=== PATIENT | female | born 1970 | race Caucasian/White ===

== ENCOUNTER → 2019-04-25 10:36 | Outpatient (BNVA) | payer SELFPAY | PROVIDERS: Family Provider Family Medicine; PCP Family Medicine; Referring Provider Specialist; Visit Provider Internal Medicine Rheumatology | DX: M19.90 Unspecified osteoarthritis, unspecified site (principal); M32.9 Systemic lupus erythematosus, unspecified; G40.909 Epilepsy, unspecified, not intractable, without status epilepticus; M79.10 Myalgia, unspecified site | CPT/HCPCS: 99204 ==

== ENCOUNTER → 2019-05-16 11:43 | Outpatient (BNVA) | payer SELFPAY | PROVIDERS: Family Provider Family Medicine; PCP Family Medicine | DX: M1A.9XX0 Chronic gout, unspecified, without tophus (tophi) (principal); Z79.899 Other long term (current) drug therapy; Z11.59 Encounter for screening for other viral diseases; R76.9 Abnormal immunological finding in serum, unspecified; R76.8 Other specified abnormal immunological findings in serum | CPT/HCPCS: 36415; 80076; 82085; 82150; 82306; 82565; 82575; 84156; 85651; 86140; 86160; 86431; 86480; 86704; 86803; 87340 ==

== ENCOUNTER → 2019-05-16 14:12 | Outpatient (BNVA) | payer SELFPAY | PROVIDERS: Family Provider Family Medicine; PCP Family Medicine | DX: M1A.9XX0 Chronic gout, unspecified, without tophus (tophi) (principal); R76.9 Abnormal immunological finding in serum, unspecified; R76.8 Other specified abnormal immunological findings in serum; Z79.899 Other long term (current) drug therapy; M19.90 Unspecified osteoarthritis, unspecified site | CPT/HCPCS: 81001; 85025 ==

== ENCOUNTER → 2019-07-23 13:17 | Outpatient (BNVA) | payer SELFPAY | PROVIDERS: Family Provider Family Medicine; PCP Family Medicine; Visit Provider Specialist | DX: M19.90 Unspecified osteoarthritis, unspecified site (principal); Z79.899 Other long term (current) drug therapy; G40.909 Epilepsy, unspecified, not intractable, without status epilepticus; M79.7 Fibromyalgia; M32.9 Systemic lupus erythematosus, unspecified; E66.9 Obesity, unspecified; Z68.33 Body mass index [BMI] 33.0-33.9, adult | CPT/HCPCS: 36415; 80076; 82565; 85025; 85651; 86140; 99213 ==

== ENCOUNTER → 2019-12-19 14:05 | Outpatient (BNVA) | payer MEDICARE, SELFPAY | PROVIDERS: Family Provider Family Medicine; PCP Family Medicine; Visit Provider Internal Medicine Rheumatology | DX: M35.9 Systemic involvement of connective tissue, unspecified (principal); M19.90 Unspecified osteoarthritis, unspecified site; R76.8 Other specified abnormal immunological findings in serum; Z79.899 Other long term (current) drug therapy; M79.7 Fibromyalgia; L03.031 Cellulitis of right toe | CPT/HCPCS: 99214 ==

== ENCOUNTER → 2020-04-27 11:30 | Outpatient (BNVA) | payer MEDICARE, SELFPAY | PROVIDERS: Family Provider Family Medicine; PCP Family Medicine; Visit Provider Specialist | DX: R76.8 Other specified abnormal immunological findings in serum (principal); M35.9 Systemic involvement of connective tissue, unspecified; M79.7 Fibromyalgia; Z87.891 Personal history of nicotine dependence; R20.2 Paresthesia of skin; Z79.899 Other long term (current) drug therapy; G43.711 Chronic migraine without aura, intractable, with status migrainosus; R56.9 Unspecified convulsions | CPT/HCPCS: 99214 ==

== ENCOUNTER → 2020-09-02 13:43 | Outpatient (BNVA) | payer MEDICARE, SELFPAY | PROVIDERS: Family Provider Family Medicine; PCP Nurse Practitioner; Visit Provider Internal Medicine Rheumatology | DX: M32.9 Systemic lupus erythematosus, unspecified (principal); M19.90 Unspecified osteoarthritis, unspecified site; M79.7 Fibromyalgia; Z79.899 Other long term (current) drug therapy; Z87.891 Personal history of nicotine dependence; G43.909 Migraine, unspecified, not intractable, without status migrainosus; G40.909 Epilepsy, unspecified, not intractable, without status epilepticus | CPT/HCPCS: 99213; 99214 ==

== ENCOUNTER → 2021-02-01 13:57 | Outpatient (BNVA) | payer MEDICARE, SELFPAY | PROVIDERS: Family Provider Family Medicine; PCP Nurse Practitioner; Visit Provider Specialist | DX: G43.711 Chronic migraine without aura, intractable, with status migrainosus (principal); G40.909 Epilepsy, unspecified, not intractable, without status epilepticus; G25.81 Restless legs syndrome; E66.9 Obesity, unspecified; Z68.37 Body mass index [BMI] 37.0-37.9, adult | CPT/HCPCS: 99213; 99214 ==

== ENCOUNTER → 2021-08-02 14:58 | Outpatient (BNVA) | payer MEDICARE, SELFPAY | PROVIDERS: Family Provider Family Medicine; PCP Nurse Practitioner; Visit Provider Specialist | DX: G43.711 Chronic migraine without aura, intractable, with status migrainosus (principal); R35.0 Frequency of micturition | CPT/HCPCS: 99213; 99214 ==

== ENCOUNTER → 2021-08-25 14:57 | Outpatient (BNVA) | payer MEDICARE, SELFPAY | PROVIDERS: Family Provider Family Medicine; PCP Nurse Practitioner; Visit Provider Internal Medicine Rheumatology | DX: M32.9 Systemic lupus erythematosus, unspecified (principal); Z79.899 Other long term (current) drug therapy; M79.7 Fibromyalgia; L03.031 Cellulitis of right toe; K59.00 Constipation, unspecified; R19.7 Diarrhea, unspecified; Z71.89 Other specified counseling | CPT/HCPCS: 99214 ==

== ENCOUNTER → 2021-12-01 14:39 | Outpatient (BNVA) | payer MEDICARE, SELFPAY | PROVIDERS: Family Provider Family Medicine; PCP Nurse Practitioner; Visit Provider Internal Medicine Rheumatology | DX: M32.9 Systemic lupus erythematosus, unspecified (principal); Z79.899 Other long term (current) drug therapy; Z71.89 Other specified counseling; L56.8 Other specified acute skin changes due to ultraviolet radiation; K58.2 Mixed irritable bowel syndrome; L03.031 Cellulitis of right toe; K21.9 Gastro-esophageal reflux disease without esophagitis | CPT/HCPCS: 99214 ==

== ENCOUNTER → 2022-07-05 12:40 | Outpatient (BNVA) | payer MEDICARE, SELFPAY | PROVIDERS: Family Provider Family Medicine; PCP Nurse Practitioner; Visit Provider Specialist | DX: G43.109 Migraine with aura, not intractable, without status migrainosus (principal); M32.9 Systemic lupus erythematosus, unspecified; R56.9 Unspecified convulsions; Z79.899 Other long term (current) drug therapy; R41.89 Other symptoms and signs involving cognitive functions and awareness; Z71.89 Other specified counseling; R20.2 Paresthesia of skin | CPT/HCPCS: 99214 ==

== ENCOUNTER → 2023-01-03 13:36 | Outpatient (BNVA) | payer MEDICARE, SELFPAY | PROVIDERS: Family Provider Family Medicine; PCP Nurse Practitioner; Visit Provider Internal Medicine Rheumatology | DX: M32.9 Systemic lupus erythematosus, unspecified (principal); Z79.899 Other long term (current) drug therapy; Z71.89 Other specified counseling; M35.9 Systemic involvement of connective tissue, unspecified; G40.909 Epilepsy, unspecified, not intractable, without status epilepticus | CPT/HCPCS: 36415; 80076; 82565; 85025; 86140; 99214 ==

== ENCOUNTER → 2023-07-31 11:31 | Outpatient (BNVA) | payer MEDICARE, SELFPAY | PROVIDERS: Family Provider Family Medicine; PCP Nurse Practitioner; Visit Provider Internal Medicine Rheumatology | DX: M32.9 Systemic lupus erythematosus, unspecified (principal); Z79.899 Other long term (current) drug therapy; M45.6 Ankylosing spondylitis lumbar region; M54.9 Dorsalgia, unspecified; Z71.89 Other specified counseling | CPT/HCPCS: 72100; 72170; 99214 ==

== ENCOUNTER → 2023-08-04 13:01 | Outpatient (BNVA) | payer MEDICARE, SELFPAY | PROVIDERS: Family Provider Family Medicine; PCP Nurse Practitioner; Visit Provider Specialist | DX: M32.9 Systemic lupus erythematosus, unspecified (principal); G40.909 Epilepsy, unspecified, not intractable, without status epilepticus; G43.711 Chronic migraine without aura, intractable, with status migrainosus; G25.81 Restless legs syndrome | CPT/HCPCS: 99214 ==

== ENCOUNTER → 2024-04-15 10:22 | Outpatient (BNVA) | payer MEDICARE, SELFPAY | PROVIDERS: Family Provider Family Medicine; PCP Nurse Practitioner; Visit Provider Internal Medicine Rheumatology | DX: M32.9 Systemic lupus erythematosus, unspecified (principal); Z79.899 Other long term (current) drug therapy; Z71.89 Other specified counseling | CPT/HCPCS: 36415; 80076; 82306; 82565; 83520; 85025; 85651; 86140; 86200; 86431; 99214 ==

== ENCOUNTER → 2024-07-15 10:43 | Outpatient (BNVA) | payer MEDICARE, SELFPAY | PROVIDERS: Family Provider Family Medicine; PCP Nurse Practitioner; Visit Provider Internal Medicine Rheumatology | DX: M32.9 Systemic lupus erythematosus, unspecified (principal); Z79.899 Other long term (current) drug therapy; Z71.89 Other specified counseling | CPT/HCPCS: 36415; 80076; 82565; 85025; 85651; 86140; 99214 ==

== ENCOUNTER → 2024-12-10 13:11 | Outpatient (BNVA) | payer MEDICARE, SELFPAY | PROVIDERS: Family Provider Family Medicine; PCP Nurse Practitioner; Visit Provider Specialist | DX: G40.909 Epilepsy, unspecified, not intractable, without status epilepticus (principal); Z79.899 Other long term (current) drug therapy; Z71.85 Encounter for immunization safety counseling; M79.7 Fibromyalgia; K59.00 Constipation, unspecified; R19.7 Diarrhea, unspecified; L03.031 Cellulitis of right toe; G43.711 Chronic migraine without aura, intractable, with status migrainosus; G25.81 Restless legs syndrome | CPT/HCPCS: 36415; 80076; 82565; 85025; 85651; 86140; 99214 ==

== ENCOUNTER → 2024-12-24 15:15 | Outpatient (BNVA) | payer MEDICARE, SELFPAY | PROVIDERS: Family Provider Family Medicine; PCP Nurse Practitioner; Visit Provider Internal Medicine Rheumatology | DX: M65.321 Trigger finger, right index finger (principal) | CPT/HCPCS: 20600; J1010; J9999 ==